=== PATIENT | male | born 1985 | race Caucasian/White ===

== ENCOUNTER 2023-11-14 00:29 | Emergency (ER) | payer SELFPAY ==
[~2023-11-14] VITALS: Ht 167.6 cm; Wt 93.6 kg
[2023-11-14] MEDS: hydrALAZINE HCL 10 MG TAB PO ONE (00:47)
[2023-11-14] MEDS ORDERED: AMOX875T4 PO (01:12)
[2023-11-14] MEDS ORDERED: IBUP-1455 PO (01:12)
[2023-11-14 02:00] VITALS: BP 165/98; PULSE 80; RESP 18; O2SAT 98
[2023-11-14] MEDS: cefTRIAXone SOD 1,000 MG VL IM ONE (02:01)
[2023-11-14] MEDS: KETOROLAC TROMETH 30 MG/ML 1ML VIAL IM ONE (02:02)
== END 2023-11-14 02:35 | disposition home or self-care (01) ==
LOC: ER 00:29
DX: K04.7 Periapical abscess without sinus (principal)
CPT/HCPCS: 96372; 99284; J0696; J1885